=== PATIENT | female | born 1970 | race Hispanic/Latino ===

== ENCOUNTER → 2019-01-12 | Outpatient (CLI) | payer OTHER ==
[~2019-01-12] VITALS: Ht 167.6 cm; Wt 136.1 kg
[~2019-01-12] MED LIST: BACL20TA PO; CELEBREX PO; GABAPENTIN PO; LOSA1TAB37 PO; METO50TA18 PO; MOME17N NASAL; OMEP40CA37 PO; PROZAC PO; REGADENOSON 0.4 MG/5 ML PF SYG IVP SCH; SUMA25TA25 PO
== END | disposition home or self-care (01) ==
LOC: SHCH 08:43
PROVIDERS: ATTEND Internal Medicine Cardiovascular Disease
DX: Z01.810 Encounter for preprocedural cardiovascular examination (principal); R06.02 Shortness of breath
CPT/HCPCS: 78452; 93017; 96374; A9500 ×2; J2785

== ENCOUNTER 2019-01-30 07:51 | Day surgery (SDC) | payer OTHER ==
[2019-01-27 08:30] VITALS: BP 109/61
[2019-01-27 08:40] LABS: BASOPHILS % (AUTO) 0.4 % (0.0-5.0); EOSINOPHILS % (AUTO) 1.6 % (0.0-8.0); HEMATOCRIT 38.6 % (36-48); LYMPHOCYTES % (AUTO) 25.9 % (21.0-51.0); MEAN CORPUSCULAR HEMOGLOBIN 28.4 pg (27.0-33.0); MEAN CORPUSCULAR HGB CONC 33.6 g/dL (32.0-36.0); MEAN CORPUSCULAR VOLUME 84.6 fL (79-99); MONOCYTES % (AUTO) 5.3 % (3.0-13.0); NEUTROPHILS % (AUTO) 66.8 % (40.0-77.0); NUCLEATED RED BLOOD CELLS 0.1 % (0.0-0.19); PLATELET COUNT (AUTO) 285 K/uL (130-400); RED BLOOD CELL COUNT(AUTO) 4.56 MIL/uL (4.00-5.50); RED CELL DISTRIBUTION WIDTH 14.2 % (11.0-15.5); WHITE BLOOD COUNT (AUTO) 8.6 K/uL (4.8-10.8)
[2019-01-27 08:41] LABS: BILIRUBIN,URINE Negative (NEGATIVE); COLOR,URINE Dark Yellow (YELLOW); GLUCOSE, URINE (UA) Negative (NEGATIVE); KETONES,URINE Negative (NEGATIVE); LEUKOCYTE ESTERASE ,URINE Small (NEGATIVE); NITRATE,URINE Positive (NEGATIVE); OCCULT BLOOD,URINE Moderate (NEGATIVE); PROTEIN,URINE POS 2+ mg/dL (NEGATIVE)
[2019-01-27 08:46] LABS: CREATININE 0.9 mg/dL (0.5-1.5); POTASSIUM 3.2 mmol/L (3.5-5.1)
[2019-01-27 08:50] LABS: APPEARANCE,URINE SLIGHTLY CLOUDY (CLEAR)
[2019-01-27 08:56] LABS: INR 0.95 (0.85-1.15); PARTIAL THROMBOPLASTIN TIME 24.5 SEC (26.3-35.5)
[2019-01-27 09:14] LABS: BACTERIA,URINE Many /HPF (None Seen)
--- NOTE | 2019-01-29 11:15 | NUR ---
LABS NO ORDER GIVEN FOR ABNORMAL UA
--- NOTE | 2019-01-29 11:15 | NUR ---
LABS ABNORMAL LABS REPORTED TO ANNE-MARIE GUERRERO WITH DR. GARCIA, FURTHER ORDERS GIVEN AND WILL BE CARRIED OUT. PER ANNE-MARIE HIS OFFICE WILL CALL IN POTASSIUM PRESCRIPTION TO PHARMACY FOR PATIENT TO START TODAY.
[2019-01-30] VITALS (8 sets, daily range): BP systolic 119–140; BP diastolic 69–86
[~2019-01-30] VITALS: Ht 170.2 cm; Wt 136.2 kg
[~2019-01-30 07:51] MED LIST changes: -BACL20TA PO; -CELEBREX PO; -GABAPENTIN PO; +IBUP-2070 PO; +INSLAN SQ; +METF-446 PO; -MOME17N NASAL; +OMEP40CA13 PO; -OMEP40CA37 PO; -PROZAC PO; -REGADENOSON 0.4 MG/5 ML PF SYG IVP SCH; +SODIUM CHLORIDE 0.9% 500ML 500 ML IV SCH; -SUMA25TA25 PO
[2019-01-30] MEDS ORDERED: SODIUM CHLORIDE 0.9% 1000ML 1,000 ML IV ONE (08:53)
[2019-01-30] MEDS ORDERED: GABA-531 PO (09:47)
[2019-01-30] MEDS ORDERED: LOSA1TAB54 PO (09:47)
[2019-01-30] MEDS ORDERED: SIMV-43 PO (09:47)
[2019-01-30] MEDS ORDERED: LEVO200T10 PO (09:47)
[2019-01-30] MEDS ORDERED: HYDR-4381 PO (09:47)
[2019-01-30] MEDS ORDERED: BUSP15TA3 PO (09:47)
[2019-01-30] MEDS ORDERED: LORA10TA7 PO (09:47)
[2019-01-30] MEDS ORDERED: MONT10TA24 PO (09:47)
[2019-01-30] MEDS ORDERED: VERAPAMIL HCL 2.5 MG/ML VIAL ONE (11:39)
[2019-01-30] MEDS ORDERED: IOHEXOL 350 MG/ML 100ML INFUS..BTL IV ONE (11:39)
[2019-01-30] MEDS ORDERED: IOHEXOL-350 50ML VIAL IV ONE (11:39)
[2019-01-30] MEDS ORDERED: MIDAZOLAM HCL 1 MG/ML 2ML VIAL ONE (11:39)
[2019-01-30] MEDS ORDERED: NITROGLYCERIN 5 MG/ML 10 ML VIAL IV ONE (11:39)
[2019-01-30] MEDS ORDERED: HEPARIN SODIUM 1000UNIT/ML 10ML VIAL ONE (11:39)
[2019-01-30] MEDS ORDERED: FENTANYL CITRATE PF 50 MCG/1 ML 2ML VIAL ONE (11:40)
[2019-01-30] MEDS ORDERED: LIDOCAINE HCL 2% 20ML ONE (11:40)
[2019-01-30] MEDS ORDERED: BIVALIRUDIN 250 MG/VIAL IV ONE ×2 (11:48→11:56)
[2019-01-30] MEDS ORDERED: SODIUM CHLORIDE 0.9% 1000ML 1,000 ML IV SCH (12:53)
[2019-01-30] MEDS ORDERED: GLUCAGON 1MG KIT 1 MG ML IM PRN (13:00)
[2019-01-30] MEDS ORDERED: DEXTROSE 50%-WATER 50 ML DISP.SYRIN IV PRN (13:00)
--- NOTE | 2019-01-30 15:35 | NUR ---
DISCHARGE PT DISCHARGED VIA WHEELCHAIR WITH MOTHER. PT STABLE. NO COMPLAINTS MADE. TOLERATED DIET WELL. VOIDED PRIOR TO DISCHARGE. CATH SITE TO RIGHT RADIAL SOFT, NO OOZING NO HEMATOMA NOTED, DRESSING DRY AND INTACT. DISCHARGE INSTRUCTIONS GIVEN TO MOTHER AND PT, VERBALIZED UNDERSTANDING.
== END 2019-01-30 15:35 | disposition home or self-care (01) ==
LOC: DAH 07:51
PROVIDERS: ATTEND Internal Medicine Cardiovascular Disease
DX: I25.10 Atherosclerotic heart disease of native coronary artery without angina pectoris (principal); R94.39 Abnormal result of other cardiovascular function study; M51.35 Other intervertebral disc degeneration, thoracolumbar region; G47.00 Insomnia, unspecified; K21.9 Gastro-esophageal reflux disease without esophagitis; I10 Essential (primary) hypertension; E11.9 Type 2 diabetes mellitus without complications; F41.9 Anxiety disorder, unspecified; E78.2 Mixed hyperlipidemia; F32.9 Major depressive disorder, single episode, unspecified; Z79.899 Other long term (current) drug therapy; Z79.84 Long term (current) use of oral hypoglycemic drugs; Z85.850 Personal history of malignant neoplasm of thyroid; Z90.49 Acquired absence of other specified parts of digestive tract; Z90.710 Acquired absence of both cervix and uterus; Z79.01 Long term (current) use of anticoagulants; Z98.890 Other specified postprocedural states; Z79.4 Long term (current) use of insulin; Z87.891 Personal history of nicotine dependence; Z82.49 Family history of ischemic heart disease and other diseases of the circulatory system; Z83.3 Family history of diabetes mellitus
CPT/HCPCS: 36415 ×2; 71045; 80048; 81001; 82948 ×2; 84132; 85025; 85610; 85730; 93005; 93458; A4215; A4216; A4221; A4222; A4223 ×2; A4606; C1769 ×2; C1894; J0583 ×2; J1644 ×2; J2250; J3010; J3490 ×3; J7030; Q9965; Q9967 ×2; 99156; 99157